=== PATIENT | female | born 2000 | race Two or more races ===

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

== ENCOUNTER 2022-12-13 00:27 | Emergency (ER) | payer MEDICAID, OTHER ==
[~2022-12-13] VITALS: Ht 167.6 cm; Wt 83.2 kg
[2022-12-13 01:46] VITALS: BP 120/76
[2022-12-13] MEDS ORDERED: IBUPROFEN 800 MG TAB PO ONE (03:30)
== END 2022-12-13 03:46 | disposition home or self-care (01) ==
LOC: ER 00:27
DX: S09.90XA Unspecified injury of head, initial encounter (principal); W22.8XXA Striking against or struck by other objects, initial encounter; Y93.89 Activity, other specified; Y92.89 Other specified places as the place of occurrence of the external cause; Y99.8 Other external cause status